=== PATIENT | female | born 1970 | race Caucasian/White ===

== ENCOUNTER → 2020-02-10 07:58 | Outpatient (CLI) | payer OTHER, SELFPAY ==
[2020-02-03 13:47] VITALS: BMI 26.5
--- NOTE | 2020-02-10 08:00 | US_ITS ---
STUDY: ULTRASOUND OF THE FEMALE PELVIS - COMPLETE REASON FOR EXAM: Female, 49 years old. ENLARGED UT LMP: Status post ablation. TECHNIQUE: Transabdominal and Transvaginal TECHNICAL QUALITY: Adequate. COMPARISON: None. FINDINGS: The uterus is anteverted and is in a midline position. The uterus is enlarged and measures 11.2 cm x 5.4 cm x 8.5 cm. Normal uterine cervix. The endometrium measures 5.4 mm in thickness, and is hyperechoic. There is no demonstrated endometrial mass. Multiple fibroids are seen. The larger measures 5 cm x 4.2 cm 4.5 cm. A second fibroid measures 2.4 cm x 2.7 cm by 2 cm. A third fibroid measures 2.4 times x 3.2 cm x 2 cm. I.U.D. - The patient does not have an I.U.D. The right ovary is visualized. The right ovary measures 3.9 cm x 2.9 cm x 1.2 cm. There is no right ovarian cyst or ovarian mass. There is no visualized right adnexal mass or complex lesion. There is normal arterial and normal venous vascularity. The left ovary is visualized. The left ovary measures 5.5 cm x 2.6 cm x 2.6 cm. 2 adjacent cysts are seen. The larger measures 2.4 cm x 2.4 cm x 1.7 cm. There is no visualized left adnexal mass or complex lesion. There is normal arterial and normal venous vascularity. There is no fluid in the cul-de-sac. The pre void volume of the bladder was 173 ml. Polycystic ovary disease: No. US/Pelvic (Non ) IMPRESSION: Enlarged fibroid uterus. 2 simple cysts are seen in the left ovary. Electronically Signed: Inder Estes, at 9:21 EDT , Service support ,
--- NOTE | 2020-02-10 08:00 | US_ITS ---
STUDY: ULTRASOUND OF THE FEMALE PELVIS - COMPLETE REASON FOR EXAM: Female, 49 years old. ENLARGED UT LMP: Status post ablation. TECHNIQUE: Transabdominal and Transvaginal TECHNICAL QUALITY: Adequate. COMPARISON: None. FINDINGS: The uterus is anteverted and is in a midline position. The uterus is enlarged and measures 11.2 cm x 5.4 cm x 8.5 cm. Normal uterine cervix. The endometrium measures 5.4 mm in thickness, and is hyperechoic. There is no demonstrated endometrial mass. Multiple fibroids are seen. The larger measures 5 cm x 4.2 cm 4.5 cm. A second fibroid measures 2.4 cm x 2.7 cm by 2 cm. A third fibroid measures 2.4 times x 3.2 cm x 2 cm. I.U.D. - The patient does not have an I.U.D. The right ovary is visualized. The right ovary measures 3.9 cm x 2.9 cm x 1.2 cm. There is no right ovarian cyst or ovarian mass. There is no visualized right adnexal mass or complex lesion. There is normal arterial and normal venous vascularity. The left ovary is visualized. The left ovary measures 5.5 cm x 2.6 cm x 2.6 cm. 2 adjacent cysts are seen. The larger measures 2.4 cm x 2.4 cm x 1.7 cm. There is no visualized left adnexal mass or complex lesion. There is normal arterial and normal venous vascularity. There is no fluid in the cul-de-sac. The pre void volume of the bladder was 173 ml. Polycystic ovary disease: No. US/Transvaginal Non- IMPRESSION: Enlarged fibroid uterus. 2 simple cysts are seen in the left ovary. Electronically Signed: Inder Estes, at 9:21 EDT , Service support ,
== END ==
PROVIDERS: PCP Family Medicine; Referring Provider Obstetrics & Gynecology; Visit Provider Obstetrics & Gynecology
DX: N85.2 Hypertrophy of uterus (principal)
CPT/HCPCS: 76830; 76856